=== PATIENT | female | born 1990 | race Caucasian/White ===

== ENCOUNTER 2023-10-11 18:52 | Inpatient (IN) | payer BC ==
[~2023-10-11 18:52] MED LIST: Bupivacaine 0.25% HCL 30 ML VIAL ONE; ePHEDrine Sulfate 50 MG/10 ML VIAL ONE
[2023-10-11 19:54] VITALS: BMI 35.4
[2023-10-11] MEDS ORDERED: Lidocaine 1% (PF) 30 ML VIAL SC PRN (21:27)
[2023-10-11] MEDS ORDERED: Promethazine HCl 25 MG/ML VIAL IM PRN (21:27)
[2023-10-11] MEDS ORDERED: hydrALAZINE 20 MG/ML VIAL SLOW IVP PRN (21:27)
[2023-10-11] MEDS ORDERED: Misoprostol 200 MCG TAB PR PRN (21:27)
[2023-10-11] MEDS ORDERED: Acetaminophen 500 MG TAB PO PRN (21:27)
[2023-10-11] MEDS ORDERED: HYDROcodone/Acetaminophen 5/325 mg Tablet PO PRN (21:27)
[2023-10-11] MEDS ORDERED: Zolpidem Tartrate 5 MG TAB PO PRN (21:27)
[2023-10-11] MEDS ORDERED: Ibuprofen 800 MG TAB PO PRN (21:27)
[2023-10-11] MEDS ORDERED: Methylergonovine 0.2 MG/ML VIAL IM PRN (21:27)
[2023-10-11] MEDS ORDERED: Ondansetron PF 4 MG/2 ML Vial IVP PRN (21:27)
[2023-10-11] MEDS ORDERED: Carboprost 250 MCG/ML AMP IM PRN (21:27)
[2023-10-11] MEDS ORDERED: fentaNYL 50 mcg/mL 1 mL Vial SLOW IVP PRN (21:27)
[2023-10-11] MEDS ORDERED: Diphenoxylate HCl/Atropine Tablet PO PRN (21:27)
[2023-10-11] MEDS ORDERED: Oxytocin 30 units/NS 500 ML 500 ML IV SCH ×2 (21:30)
[2023-10-11 21:54] LABS: Hematocrit 33.9 % (34.9-44.5); Hemoglobin 11.3 g/dL (12.0-15.5); Mean Corpuscular HGB CONC 33.3 g/dL (32.0-36.0); Mean Corpuscular Hemoglobin 26.9 pg (27.0-33.0); Mean Corpuscular Volume 80.7 fl (81.6-98.3); Mean Platelet Volume 11.6 fl (7.4-10.4); Platelet Count 264 10x3/uL (150-450); RBC Distribution Width 22.6 % (11.5-14.5); White Blood Cell (WBC) Count 11.2 10x3/uL (3.5-10.5)
[2023-10-11] MEDS: Misoprostol 100 MCG TAB VAG SCH (22:04)
[2023-10-12 01:44] LABS: HBSAg Index 0.19 S/CO (0-0.99); Hep B Surf Ag - L&D Non-Reactive S/CO (NonReactive)
[2023-10-12 01:46] LABS: Syphilis Antibody Nonreactive (Nonreactive); Syphilis Antibody Index 0.05 S/CO (<1.00 Non-Reactive)
[2023-10-12] MEDS: Misoprostol 100 MCG TAB VAG SCH (01:51)
[2023-10-12] MEDS: Lactated Ringer's 1,000 ML IV SCH ×2 (04:20→05:30)
[2023-10-12] MEDS ORDERED: fentaNYL/Ropivacaine Epidural 100 ML ONE (05:00)
[2023-10-12] MEDS ORDERED: Lactated Ringer's 500 ML IV PRN (06:01)
[2023-10-12] MEDS ORDERED: Acetaminophen 325 MG TAB PO PRN (06:01)
[2023-10-12] MEDS ORDERED: Ondansetron PF 4 MG/2 ML Vial IVP PRN ×2 (06:01→19:13)
[2023-10-12] MEDS ORDERED: diphenhydrAMINE 50 MG/ML VIAL IVP PRN (06:01)
[2023-10-12] MEDS ORDERED: Promethazine HCl 25 MG/ML VIAL IM PRN ×2 (06:01→19:13)
[2023-10-12] MEDS ORDERED: ePHEDrine Sulfate 50 MG/10 ML VIAL SLOW IVP PRN (06:01)
[2023-10-12] MEDS ORDERED: Moisturizing Cream (Eucerin) 113 GM JAR TOP PRN (06:01)
[2023-10-12] MEDS ORDERED: Naloxone HCl 0.4 mg/ml Vial IVP PRN ×2 (06:01)
[2023-10-12] MEDS ORDERED: fentaNYL 2 mcg/Ropivacaine 0.2% Epidural 100 ML CADD EPIDURAL SCH (06:15)
[2023-10-12] MEDS ORDERED: Communication Order-Pharmacy FS SCH (06:15)
[2023-10-12] MEDS ORDERED: Dexmedetomidine 200 MCG/2 ML VIAL ONE (07:12)
[2023-10-12] MEDS ORDERED: PHENYLEPHRINE-NS 100 MCG/ML 10 ML SYRINGE ONE (08:08)
[2023-10-12] MEDS ORDERED: Benzocaine-Menthol 82.5 ML CAN TOP PRN (19:13)
[2023-10-12] MEDS ORDERED: Bisacodyl 10 MG SUPP PR PRN (19:13)
[2023-10-12] MEDS ORDERED: Boostrix 0.5 ML (Tdap) VIAL (>/=7 yrs of age) IM ONE (19:13)
[2023-10-12] MEDS ORDERED: diphenhydrAMINE 25 MG CAP PO PRN (19:13)
[2023-10-12] MEDS ORDERED: Lanolin Ointment 7 GM TUBE TOP PRN (19:13)
[2023-10-12] MEDS ORDERED: hydrALAZINE 20 MG/ML VIAL SLOW IVP PRN (19:13)
[2023-10-12] MEDS ORDERED: Preparation H Ointment 28 GM TUBE PR PRN (19:13)
[2023-10-12] MEDS ORDERED: HYDROcodone/Acetaminophen 5/325 mg Tablet PO PRN (19:13)
[2023-10-12] MEDS ORDERED: Milk Of Magnesia 30 ML UDCUP PO PRN (19:13)
[2023-10-12] MEDS ORDERED: Ferrous Sulfate 325 MG TAB PO SCH (19:30)
[2023-10-12] MEDS: Docusate 100 MG CAP PO SCH (20:48)
[2023-10-13] MEDS: Ibuprofen 800 MG TAB PO SCH ×4 (06:14→21:28)
[2023-10-13] MEDS: Ferrous Sulfate 325 MG TAB PO SCH ×2 (07:07→07:08)
[2023-10-13] MEDS: Misoprostol 100 MCG TAB VAG SCH ×2 (07:08→07:09)
[2023-10-13] MEDS: Lactated Ringer's 1,000 ML IV SCH (07:09)
[2023-10-13] MEDS: Prenatal Vitamin 1 TAB PO SCH (08:00)
[2023-10-13] MEDS: Docusate 100 MG CAP PO SCH ×2 (08:00→21:27)
[2023-10-13] MEDS: HYDROcodone/Acetaminophen 5/325 mg Tablet PO PRN ×2 (11:17→17:05)
[2023-10-14] MEDS: Ibuprofen 800 MG TAB PO SCH (06:19)
[2023-10-14] MEDS: Prenatal Vitamin 1 TAB PO SCH (07:47)
[2023-10-14] MEDS: Docusate 100 MG CAP PO SCH (07:47)
[2023-10-14 09:01] VITALS: BP 138/82; TEMP 99.1
== END 2023-10-14 12:00 | disposition home or self-care (01) | DRG 807 ==
LOC: EEVIPCON 18:52 → CSHLD 18:52 → CSHPP 10-12 20:00
PROVIDERS: ADMIT Student in an Organized Health Care Education/Training Program; ATTEND Student in an Organized Health Care Education/Training Program
PROC: 3E033XZ Introduction of Vasopressor into Peripheral Vein, Percutaneous Approach (ICD-10-PCS; 2023-10-11)
PROC: 3E0P7VZ Introduction of Hormone into Female Reproductive, Via Natural or Artificial Opening (ICD-10-PCS; principal; 2023-10-12)
PROC: 10E0XZZ Delivery of Products of Conception, External Approach (ICD-10-PCS; 2023-10-12)
PROC: 0HQ9XZZ Repair Perineum Skin, External Approach (ICD-10-PCS; 2023-10-12)
DX: O70.0 First degree perineal laceration during delivery (principal); Z37.0 Single live birth; Z3A.39 39 weeks gestation of pregnancy
CPT/HCPCS: 36415; 85027; 86780; 86850; 86900; 86901; 87340; J0665; J2405; J3010; J7120

== ENCOUNTER 2023-11-16 13:21 | Emergency (ER) | payer BC ==
[~2023-11-16 13:21] MED LIST changes: -Bupivacaine 0.25% HCL 30 ML VIAL ONE; +Iopamidol 300 61% 100 ML VIAL FS ONE; -ePHEDrine Sulfate 50 MG/10 ML VIAL ONE
[2023-11-16] MEDS ORDERED: Ondansetron PF 4 MG/2 ML Vial ONE ×2 (14:24→17:21)
[2023-11-16] MEDS ORDERED: Ketorolac Tromethamine 30 MG (1 mL) VIAL ONE (14:24)
[2023-11-16 14:34] LABS: #Eosinphils 0.2 10x3/uL (0.0-0.5); #Monocytes 0.7 10x3/uL (0.0-1.1); %Basophils 0.3 % (0.0-2.0); %Eosinophils 1.4 % (0.0-6.0); %Lymphocytes 12.4 % (18.0-47.0); %Monocytes 4.6 % (0.0-10.0); %Neutrophils 80.9 % (40.0-75.0); Hematocrit 40.9 % (34.9-44.5); Hemoglobin 14.2 g/dL (12.0-15.5); Mean Corpuscular HGB CONC 34.7 g/dL (32.0-36.0); Mean Corpuscular Hemoglobin 28.9 pg (27.0-33.0); Mean Corpuscular Volume 83.1 fl (81.6-98.3); Mean Platelet Volume 9.8 fl (7.4-10.4); Platelet Count 256 10x3/uL (150-450); RBC Distribution Width 18.2 % (11.5-14.5); Red Blood Cell (RBC) Count 4.92 10x6/uL (3.90-5.03); White Blood Cell (WBC) Count 14.8 10x3/uL (3.5-10.5)
[2023-11-16 14:54] LABS: ALT (SGPT) 20 U/L (8-55); AST (SGOT) 14 U/L (5-34); Albumin 3.9 g/dL (3.5-5.0); Alkaline Phosphatase 86 U/L (40-110); Anion Gap 14 mmol/L (10-20); BUN (Urea Nitrogen) 14 mg/dL (7.0-18.7); Bilirubin, Total 0.2 mg/dL (0.2-1.2); Calc. Creatinine Clearance 0 mL/min (70-130); Calcium 8.8 mg/dL (7.8-10.44); Carbon Dioxide 24 mmol/L (22-29); Chloride 106 mmol/L (98-107); Estimated GFR 98; Globulin 2.8 g/dL (2.4-3.5); Glucose 90 mg/dL (70-105); Lipase 15 U/L (8-78); Potassium 3.5 mmol/L (3.5-5.1); Protein, Total 6.7 g/dL (6.0-8.3); Sodium 140 mmol/L (136-145)
[2023-11-16 15:17] LABS: BHCG - Serum Negative (NEGATIVE); Pregs Control Background? CLEAR/WHITE (CLR/WHITE); Pregs Control Bar Appear? YES (CONTROL BAR)
[2023-11-16] MEDS ORDERED: Piperacillin/Tazobactam 3.375 GM VIAL ONE (15:25)
[2023-11-16 16:59] LABS: Bilirubin Neg (Negative); Blood, Urine 50 (Negative); Clarity Clear (Clear); Glucose, Urine (Dipstick) Normal (Negative); Ketone, Urine 5 mg/dL (Negative); Leukocyte Negative (Negative); Nitrite Negative (Negative); Protein, Urine (Dipstick) Negative (Neg-Trace); Urobilinogen Normal mg/dL (Less than 2)
[2023-11-16] MEDS ORDERED: SUGAMMADEX SODIUM 200 MG/2 ML VIAL ONE ×2 (17:21→18:44)
[2023-11-16] MEDS ORDERED: Dexamethasone 20 MG/5 ML VIAL ONE (17:21)
[2023-11-16] MEDS ORDERED: PROPOFOL 20 ML ONE (17:21)
[2023-11-16] MEDS ORDERED: Lidocaine 1% PF 5 ML VIAL ONE (17:21)
[2023-11-16] MEDS ORDERED: Rocuronium Bromide 10 MG/ML (10ML VIAL) ONE (17:21)
[2023-11-16] MEDS ORDERED: fentaNYL 50 mcg/mL 1 mL Vial ONE (17:22)
[2023-11-16] MEDS ORDERED: Midazolam HCl 2 mg/2 ml Vial ONE (17:22)
[2023-11-16 17:26] LABS: Bacteria/HPF 1+ HPF (None Seen); CAUTI Indications for Culture Pelvic or flank pain; Mucous/LPF 2+ LPF (<2+); RBC/HPF 0-3 HPF (0-3); Squamous Epithelial 0-3 HPF (0-3); WBC/HPF 0-3 HPF (0-3)
[2023-11-16 17:27] LABS: Urine Culture Reflex No No
[2023-11-16] MEDS ORDERED: Bupivacaine PF 0.5% 30 ML VIAL ONE (17:38)
[2023-11-16] MEDS ORDERED: EPINEPHrine 1 MG/ML VIAL ONE (17:38)
[2023-11-16] MEDS ORDERED: HYDROcodone/Acetaminophen 5/325 mg Tablet PO PRN ×2 (19:08)
[2023-11-16] MEDS ORDERED: Acetaminophen 325 MG TAB PO PRN (19:08)
[2023-11-16] MEDS ORDERED: HYDROcodone/Acetaminophen 5/325 mg Tablet ONE (19:38)
== END 2023-11-16 18:13 | disposition admitted as inpatient to this hospital (09) ==
LOC: CSHERS 13:21
PROC: 0DTJ4ZZ Resection of Appendix, Percutaneous Endoscopic Approach (ICD-10-PCS; principal; 2023-11-16)
DX: O99.63 Diseases of the digestive system complicating the puerperium (principal); K35.80 Unspecified acute appendicitis; O99.03 Anemia complicating the puerperium; Z79.899 Other long term (current) drug therapy
CPT/HCPCS: 74177; 80053; 81001; 83605; 83690; 84703; 85025; 88304; 96374; 96375; A4649; J0171; J0665; J1100; J1885; J2250; J2405; J2543; J2704; J3010; Q9967

== ENCOUNTER 2025-04-30 09:47 | Outpatient (CLI) | payer BC | END 2025-04-30 09:48 | disposition home or self-care (01) | LOC: CSHSLEEP 09:47 | PROVIDERS: ATTEND Family Medicine | DX: G47.33 Obstructive sleep apnea (adult) (pediatric) (principal); R06.89 Other abnormalities of breathing; G47.10 Hypersomnia, unspecified; G47.61 Periodic limb movement disorder; G25.81 Restless legs syndrome; R53.83 Other fatigue; R09.89 Other specified symptoms and signs involving the circulatory and respiratory systems; R51.9 Headache, unspecified; R41.89 Other symptoms and signs involving cognitive functions and awareness; E66.9 Obesity, unspecified; Z68.30 Body mass index [BMI] 30.0-30.9, adult; R06.83 Snoring | CPT/HCPCS: 95800 ==